=== PATIENT | male | born 1955 | race Caucasian/White ===

== ENCOUNTER 2017-12-11 19:07 | Observation (INO) ==
[2017-12-11] MEDS ORDERED: *HR* FentaNYL (PF) 100 MCG/2 ML VIAL IVP ONE ×2 (21:18→23:00)
[2017-12-11] MEDS ORDERED: Ondansetron 4 MG/2 ML VIAL IVP ONE (21:19)
--- NOTE | 2017-12-11 21:26 | Emergency Department Note ---
Disposition Clinical Impression: Cholecystitis Cholelithiasis Qualifiers: Cholelithiasis location: gallbladder Cholecystitis presence: with cholecystitis Cholecystitis acuity: acute Biliary obstruction: without biliary obstruction Qualified Code(s): K80.00 - Calculus of gallbladder with acute cholecystitis without obstruction Leukocytosis Qualifiers: Leukocytosis type: unspecified Qualified Code(s): D72.829 - Elevated white blood cell count, unspecified Disposition: Admitted As Inpatient Condition: Good Forms: ED Satisfaction Letter, Work/School Release Time of Disposition: 00:22 General Adult HPI - General Chief complaint: ED Abdominal Pain Stated complaint: ABD Pain Time Seen by Provider: 12/11/17 21:08 Source: patient Mode of arrival: ambulatory Limitations: no limitations Nursing Notes Reviewed: Yes Vital Signs Reviewed: Yes - History of Present Illness HPI Narrative: Patient is a 62-year-old male that presents emergency department with abdominal pain. Patient states that is located in the epigastric and right upper quadrant region. Patient states that he is having significant abdominal pain that has not gotten any better. Patient states that this began around 3 PM after eating a ham sandwich and a tuna salad sandwich. Patient states that the pain does radiate into his back. Patient states that he has never had anything like this before. Patient states that he tried taking Tums and antacids without any relief. Patient denies any other radiation of his pain other than into his back. Pain Scale: 9 - Related Data Allergies Allergy/AdvReac Type Severity Reaction Status Date / Time No Known Allergies Allergy Verified 12/11/17 19:30 All systems ED: reviewed and negative except as stated. Cardiovascular: Denies: chest pain Gastrointestinal: Reports: abdominal pain, nausea. Denies: vomiting, diarrhea Musculoskeletal: Reports: back pain Past Medical History - Past Medical History Medical history: Reports: hyperlipidemia, hypertension Psychiatric history: Reports: no psych history - Social History Smoking Status: Never smoker Smokeless Tobacco Status: No Alcohol use: Reports: none Drug use: Reports: none Physical Exam - General Limitations: no limitations General appearance: alert, in no apparent distress - Head Head exam: atraumatic, normocephalic - Eye Eye exam: Present: normal appearance, EOMI - Neck Neck exam: Present: normal inspection, full ROM, trachea midline - Respiratory Respiratory exam: Present: normal lung sounds bilaterally. Absent: respiratory distress, wheezes - Abdominal Exam Abdominal exam: Present: soft, tenderness, normal bowel sounds Abdominal tenderness: Present: RUQ, epigastrium, moderate - Neurological Exam Neurological exam: Present: alert, oriented X3 - Psychiatric Psychiatric exam: Present: normal affect, normal mood - Skin Skin exam: Present: warm, dry, intact Course Vital Signs Temperature 98.6 F 12/11/17 19:27 Pulse Rate 51 12/11/17 19:27 Respiratory Rate 20 12/11/17 19:27 Blood Pressure 181/90 12/11/17 19:27 O2 Sat by Pulse Oximetry 98 12/11/17 19:27 Temperature 98.6 F 12/11/17 19:27 Pulse Rate 73 12/11/17 23:55 Respiratory Rate 20 12/11/17 23:55 Blood Pressure 146/72 12/11/17 23:55 O2 Sat by Pulse Oximetry 95 12/11/17 23:55 Oxygen Delivery Oxygen Delivery Room Air Medical Decision Making - MDM Narrative Medical decision making narrative: Due the patient presented emergency Department with abdominal pain in the epigastric region and right upper quadrant there is concern for pancreatitis versus gallbladder issue. We will obtain basic laboratory testings and a CT scan of the abdomen and pelvis. Patient's CT scan was concerning for cholelithiasis so a ultrasound was obtained which showed cholelithiasis with acute cholecystitis. Patient does have a mild leukocytosis. Based on the findings of acute cholecystitis I called and spoke with the on-call surgeon Dr. cheatham. Dr. cheatham accepted the patient to his service. Patient will be admitted to the hospital for surgical management of his acute cholecystitis. Patient will also be given 1 g of Rocephin due to the patient having cholecystitis. - Lab Data Lab results reviewed: Yes I reviewed the patient's lab results. Result diagrams: 12/11/17 21:19 12/11/17 21:19 Lab Results 12/11/17 12/11/17 12/11/17 Range/Units 21:19 21:19 22:12 WBC 12.6 H (4.3-11.1) K/mcL RBC 5.02 (4.19-5.50) M/mcL Hgb 15.4 (12.9-16.9) g/dL Hct 45.8 (37.5-50.1) % MCV 91.2 (83.0-100.0) fL MCH 30.7 (28.0-33.3) pg MCHC 33.6 (31.6-35.5) g/dL RDW 12.7 (11.5-14.5) % Plt Count 295 (140-400) K/mcL MPV 9.7 (9.4-12.4) fL Immature Gran % 0.5 (0-4) % Seg Neutrophils % 80.5 % Lymphocytes % 12.9 % Monocytes % 4.5 % Eosinophils % 1.3 % Basophils % 0.3 % Neutrophils # 10.2 H (1.6-8.9) K/mcL Lymphocytes # 1.6 (0.6-4.6) K/mcL Monocytes # 0.6 (0.0-1.3) K/mcL Eosinophils # 0.2 (0.0-0.6) K/mcL Basophils # 0.0 (0.0-0.2) K/mcL Sodium 142 (136-145) mEq/L Potassium 3.8 (3.5-5.1) mEq/L Chloride 103 (98-107) mEq/L Carbon Dioxide 26 (23-29) mEq/L BUN 15 (8-23) mg/dL Creatinine 0.96 (0.70-1.30) mg/dL Est GFR ( Amer) > 60 (> 60) Est GFR (Non-Af Amer) > 60 (> 60) BUN/Creatinine Ratio 16 (6-26) Glucose 256 H (70-105) mg/dL Calculated Osmolality 304 H (280-300) Calcium 10.3 (8.6-10.3) mg/dL Total Bilirubin 0.3 (0.3-1.0) mg/dL Direct Bilirubin 0.1 (0.0-0.2) mg/dL Indirect Bilirubin 0.2 (0.0-1.2) mg/dL AST 23 (13-39) Units/L ALT 26 (7-52) Units/L Alkaline Phosphatase 88 (34-104) Units/L Serum Total Protein 8.0 (6.4-8.9) g/dL Albumin 4.7 (3.5-5.7) g/dL Globulin 3.3 (2.4-3.5) g/dL Albumin/Globulin Ratio 1.4 (1.1-2.2) Amylase 24 L (29-103) Units/L Lipase 29 (11-82) Units/L Urine Color Yellow (Yellow) Urine Clarity Cloudy A (Clear) Urine pH 6.0 (5.0-8.0) pH Units Ur Specific [place] 1.029 H (1.010-1.025) Urine Protein 100 H (Neg-Trace) mg/dL Urine Glucose (UA) 250 H (Normal) mg/dL Urine Ketones 15 H (Negative) mg/dL Urine Blood Negative (Negative) Urine Nitrite Positive A (Negative) Urine Bilirubin Negative (Negative) Urine Urobilinogen Normal (Normal) mg/dL Ur Leukocyte Esterase Trace H (Negative) Urine Microscopic RBC 0-3 (0-3) per hpf Urine Microscopic WBC 5-15 H (0-3) per hpf Ur Squamous Epith Cells Many H (None-Few) per lpf Urine Bacteria Many H (None-Few) per hpf Hyaline Casts None Seen (None-Few) per lpf Ur Culture Indicated? NO. A (NO) - Radiology Data Radiology results reviewed: Yes I reviewed the patient's radiology results. Abdomen/Pelvis CT 12/11/17 21:18 IMPRESSION: Cholelithiasis with hydropic distension of the gallbladder lumen. Recommend HIDA scan for further evaluation. Hepatic steatosis and diverticulosis coli. D/ / Brayden Martínez MD / Brayden Martínez MD Interpreting Provider: Brayden Martínez MD Gallbladder Ultrasound 12/11/17 22:55 IMPRESSION: 1. Cholelithiasis and acute cholecystitis. 2. Fatty liver versus diffuse hepatocellular disease. D/ / Patrick Robles MD / Patrick Robles MD Interpreting Provider: Patrick Robles MD
[2017-12-11 21:39] LABS: Basophils % 0.3 %; Eosinophils # 0.2 K/mcL (0.0-0.6); Eosinophils % 1.3 %; Hematocrit 45.8 % (37.5-50.1); Hemoglobin 15.4 g/dL (12.9-16.9); Immature Granulocytes % 0.5 % (0-4); Lymphocytes # 1.6 K/mcL (0.6-4.6); Lymphocytes % 12.9 %; Mean Corpuscular HGB Conc 33.6 g/dL (31.6-35.5); Mean Corpuscular Hemoglobin 30.7 pg (28.0-33.3); Mean Corpuscular Volume 91.2 fL (83.0-100.0); Mean Platelet Volume 9.7 fL (9.4-12.4); Monocytes # 0.6 K/mcL (0.0-1.3); Monocytes % 4.5 %; Neutrophils # 10.2 K/mcL (1.6-8.9); Platelet Count 295 K/mcL (140-400); Red Blood Count 5.02 M/mcL (4.19-5.50); Red Cell Distribution Width 12.7 % (11.5-14.5); Segmented Neutrophils % 80.5 %
[2017-12-11 21:55] LABS: Alanine Aminotransferase 26 Units/L (7-52); Albumin 4.7 g/dL (3.5-5.7); Albumin/Globulin Ratio 1.4 (1.1-2.2); Alkaline Phosphatase 88 Units/L (34-104); Amylase 24 Units/L (29-103); Aspartate Amino Transferase 23 Units/L (13-39); BUN/Creatinine Ratio 16 (6-26); Bilirubin,Direct 0.1 mg/dL (0.0-0.2); Bilirubin,Indirect 0.2 mg/dL (0.0-1.2); Bilirubin,Total 0.3 mg/dL (0.3-1.0); Blood Urea Nitrogen 15 mg/dL (8-23); Calcium 10.3 mg/dL (8.6-10.3); Carbon Dioxide 26 mEq/L (23-29); Chloride 103 mEq/L (98-107); Globulin 3.3 g/dL (2.4-3.5); Glucose 256 mg/dL (70-105); Lipase 29 Units/L (11-82); Osmolality,Calculated 304 (280-300); Potassium 3.8 mEq/L (3.5-5.1); Sodium 142 mEq/L (136-145); eGFR For Non-African Americans > 60 (> 60)
[2017-12-11 22:22] LABS: Bilirubin,Urine Negative (Negative); Blood,Urine Negative (Negative); Clarity,Urine Cloudy (Clear); Color,Urine Yellow (Yellow); Glucose,Urine (UA) 250 mg/dL (Normal); Ketones,Urine 15 mg/dL (Negative); Leukocyte Esterase,Urine Trace (Negative); Nitrite,Urine Positive (Negative); Protein,Urine 100 mg/dL (Neg-Trace); Specific Gravity,Urine 1.029 (1.010-1.025); Urobilinogen,Urine Normal (Normal)
[2017-12-11 22:25] LABS: Bacteria,Urine Many per hpf (None-Few); Hyaline Casts,Urine None Seen per lpf (None-Few); Squamous Epithelial Cell,Urine Many per lpf (None-Few)
[2017-12-11 22:33] LABS: RBC,Urine 0-3 per hpf (0-3)
[2017-12-11] MEDS ORDERED: Hyoscyamine SL 0.125 MG TAB.SUBL SL STA (23:27)
[2017-12-12] MEDS ORDERED: cefTRIAXone 1,000 MG in Water for inj. (sterile) 20 ML 10 ML IVP ONE (00:21)
--- NOTE | 2017-12-12 00:27 | Emergency Department Note ---
Disposition Clinical Impression: Cholecystitis Cholelithiasis Qualifiers: Cholelithiasis location: gallbladder Cholecystitis presence: with cholecystitis Cholecystitis acuity: acute Biliary obstruction: without biliary obstruction Qualified Code(s): K80.00 - Calculus of gallbladder with acute cholecystitis without obstruction Leukocytosis Qualifiers: Leukocytosis type: unspecified Qualified Code(s): D72.829 - Elevated white blood cell count, unspecified Disposition: Admitted As Inpatient Condition: Good General Adult HPI - General Chief complaint: ED Abdominal Pain Stated complaint: ABD Pain Time Seen by Provider: 12/11/17 21:08 Source: patient Mode of arrival: ambulatory Limitations: no limitations Nursing Notes Reviewed: Yes Vital Signs Reviewed: Yes - History of Present Illness Pain Scale: 9 - Related Data Allergies Allergy/AdvReac Type Severity Reaction Status Date / Time No Known Allergies Allergy Verified 12/11/17 19:30 Cardiovascular: Denies: chest pain Gastrointestinal: Reports: abdominal pain, nausea. Denies: vomiting, diarrhea Musculoskeletal: Reports: back pain Past Medical History - Past Medical History Medical history: Reports: hyperlipidemia, hypertension Psychiatric history: Reports: no psych history - Social History Smoking Status: Never smoker Smokeless Tobacco Status: No Alcohol use: Reports: none Drug use: Reports: none Physical Exam - General Limitations: no limitations General appearance: alert, in no apparent distress Course Vital Signs Temperature 98.6 F 12/11/17 19:27 Pulse Rate 51 12/11/17 19:27 Respiratory Rate 20 12/11/17 19:27 Blood Pressure 181/90 12/11/17 19:27 O2 Sat by Pulse Oximetry 98 12/11/17 19:27 Temperature 98.6 F 12/11/17 19:27 Pulse Rate 73 12/11/17 23:55 Respiratory Rate 20 12/11/17 23:55 Blood Pressure 146/72 12/11/17 23:55 O2 Sat by Pulse Oximetry 95 12/11/17 23:55 Oxygen Delivery Oxygen Delivery Room Air Medical Decision Making - Lab Data Lab results reviewed: Yes I reviewed the patient's lab results. Result diagrams: 12/11/17 21:19 12/11/17 21:19 Lab Results 12/11/17 12/11/17 12/11/17 Range/Units 21:19 21:19 22:12 WBC 12.6 H (4.3-11.1) K/mcL RBC 5.02 (4.19-5.50) M/mcL Hgb 15.4 (12.9-16.9) g/dL Hct 45.8 (37.5-50.1) % MCV 91.2 (83.0-100.0) fL MCH 30.7 (28.0-33.3) pg MCHC 33.6 (31.6-35.5) g/dL RDW 12.7 (11.5-14.5) % Plt Count 295 (140-400) K/mcL MPV 9.7 (9.4-12.4) fL Immature Gran % 0.5 (0-4) % Seg Neutrophils % 80.5 % Lymphocytes % 12.9 % Monocytes % 4.5 % Eosinophils % 1.3 % Basophils % 0.3 % Neutrophils # 10.2 H (1.6-8.9) K/mcL Lymphocytes # 1.6 (0.6-4.6) K/mcL Monocytes # 0.6 (0.0-1.3) K/mcL Eosinophils # 0.2 (0.0-0.6) K/mcL Basophils # 0.0 (0.0-0.2) K/mcL Sodium 142 (136-145) mEq/L Potassium 3.8 (3.5-5.1) mEq/L Chloride 103 (98-107) mEq/L Carbon Dioxide 26 (23-29) mEq/L BUN 15 (8-23) mg/dL Creatinine 0.96 (0.70-1.30) mg/dL Est GFR ( Amer) > 60 (> 60) Est GFR (Non-Af Amer) > 60 (> 60) BUN/Creatinine Ratio 16 (6-26) Glucose 256 H (70-105) mg/dL Calculated Osmolality 304 H (280-300) Calcium 10.3 (8.6-10.3) mg/dL Total Bilirubin 0.3 (0.3-1.0) mg/dL Direct Bilirubin 0.1 (0.0-0.2) mg/dL Indirect Bilirubin 0.2 (0.0-1.2) mg/dL AST 23 (13-39) Units/L ALT 26 (7-52) Units/L Alkaline Phosphatase 88 (34-104) Units/L Serum Total Protein 8.0 (6.4-8.9) g/dL Albumin 4.7 (3.5-5.7) g/dL Globulin 3.3 (2.4-3.5) g/dL Albumin/Globulin Ratio 1.4 (1.1-2.2) Amylase 24 L (29-103) Units/L Lipase 29 (11-82) Units/L Urine Color Yellow (Yellow) Urine Clarity Cloudy A (Clear) Urine pH 6.0 (5.0-8.0) pH Units Ur Specific [place] 1.029 H (1.010-1.025) Urine Protein 100 H (Neg-Trace) mg/dL Urine Glucose (UA) 250 H (Normal) mg/dL Urine Ketones 15 H (Negative) mg/dL Urine Blood Negative (Negative) Urine Nitrite Positive A (Negative) Urine Bilirubin Negative (Negative) Urine Urobilinogen Normal (Normal) mg/dL Ur Leukocyte Esterase Trace H (Negative) Urine Microscopic RBC 0-3 (0-3) per hpf Urine Microscopic WBC 5-15 H (0-3) per hpf Ur Squamous Epith Cells Many H (None-Few) per lpf Urine Bacteria Many H (None-Few) per hpf Hyaline Casts None Seen (None-Few) per lpf Ur Culture Indicated? NO. A (NO) - Radiology Data Radiology results reviewed: Yes I reviewed the patient's radiology results. Abdomen/Pelvis CT 12/11/17 21:18 IMPRESSION: Cholelithiasis with hydropic distension of the gallbladder lumen. Recommend HIDA scan for further evaluation. Hepatic steatosis and diverticulosis coli. D/ / Brayden Martínez MD / Brayden Martínez MD Interpreting Provider: Brayden Martínez MD Gallbladder Ultrasound 12/11/17 22:55 IMPRESSION: 1. Cholelithiasis and acute cholecystitis. 2. Fatty liver versus diffuse hepatocellular disease. D/ / Patrick Robles MD / Patrick Robles MD Interpreting Provider: Patrick Robles MD Attestation Statement - Attestation Attestation: I, Ken Milner MD, personally evaluated this patient and discussed their management with the resident physician. I reviewed the resident's note and agree with the documented findings, medical decision making, and plan of care. 62-year-old male presents to the emergency department with a complaint of epigastric and right upper quadrant abdominal pain which started shortly after eating a sandwich around 3 or 4 PM this afternoon. No prior history of similar symptoms. Patient does still have his gallbladder. He complains of nausea due to the pain but no vomiting. No fever. No melena, hematemesis, or hematochezia. No urinary symptoms. Pain seems to radiate straight through to the back. On examination patient is a well-developed obese male in no acute distress. He does appear to be in moderate discomfort. Patient is alert and oriented 3. There is no cyanosis or diaphoresis. Breath sounds are clear and equal bilaterally. Heart regular rate and rhythm. There is moderate epigastric and right upper quadrant tenderness with positive Martines sign. Labs reviewed. CT showed dilated gallbladder with stones. Right upper quadrant ultrasound shows cholelithiasis and cholecystitis. The surgeon streetcar conductor, Dr. Louie, was consulted and accepted admission of the patient to his service.
[2017-12-12] MEDS ORDERED: *HR* OxyCODONE Immed Rel 5 MG TABLET PO PRN ×3 (01:36→11:25)
[2017-12-12] MEDS ORDERED: Piperacillin/Tazobactam 3.375 GM in 0.9 % Sodium Chloride Mini Bag 100 ML IVPB SCH (01:37)
[2017-12-12] MEDS ORDERED: Ringers Solution, Lactated 1,000 ML IVC SCH (01:45)
[2017-12-12] MEDS ORDERED: Ondansetron 4 MG/2 ML VIAL IVP PRN ×2 (01:49→11:25)
[2017-12-12] MEDS ORDERED: Ondansetron 4 MG/2 ML VIAL IVP SCH (04:00)
[2017-12-12] MEDS ORDERED: *HR* Metoprolol 5 MG/5 ML VIAL IVP SCH (06:00)
[2017-12-12] MEDS ORDERED: Bupivacaine/EPI 1:200k 0.25%PF 30 ML VIAL ONE (07:22)
--- NOTE | 2017-12-12 07:30 | General Surg History&Physical ---
Date of Encounter: 12/12/17 Time of Encounter: 07:00 History of Present Illness Chief complaint: Right upper quadrant abdominal pain HPI: Mr. Lugo is a 62 year old, resident of [place], [place], referred for further surgical evaluation and possible treatment after presenting to the [facility] emergency room department with abrupt onset right upper quadrant and epigastric abdominal pain. The pain radiates through to the back. There is been no fevers , chills, nausea, or vomiting. CT abdomen and pelvis demonstrated mild fatty infiltration of the liver; a small cyst within the right hepatic lobe; gallstones with dilated gallbladder. A 2.1 cm duodenal diverticulum was also noted. A subsequent ultrasound demonstrated diffusely echogenic liver consistent with hepatic steatosis with tiny gallstones seen within the gallbladder without gallbladder wall thickening or pericholecystic fluid. White count was mildly elevated at 12.6. The patient's symptoms were controlled briefly with medications in the emergency department with the patient opted to stay in this community for further evaluation and treatment rather than risk traveling home to [place]. Patient was referred to surgical services for cholelithiasis with concerns for acute cholecystitis. Past medical history: Obstructive sleep apnea, obesity, hypertension, hyperlipidemia Surgical history: Cervical fusion; ORIF left tibia with intramedullary brian which was subsequently removed; right great toe surgery (cartilage replacement); Tonsillectomy in the remote past; excision cystic lesion right wrist Allergies: No known drug allergies Medications: The patient is unable to recall his medications (his mother has a list but she has not yet been available to provide that information) Social history: Patient is a resident of [facility]; he is disabled and not working; he admits to tobacco use of approximately 1 pack per day for 20 years, but quit smoking in 2006. He admits to an occasional alcoholic beverage; he has used marijuana and cocaine in the remote past Family history: Not obtained Physical examination: Obese, age-appropriate male resting comfortably in his hospital bed. He still describes the presence of right upper quadrant tenderness There is a low-grade fever of 100.3; pulse currently 100 (range 89-100) respiratory rate 1519 and unlabored; blood pressure 169/80. SPO2 on room air 91%; while using CPAP it was 85% Skin: Warm, no obvious jaundice Lungs: Clear; no obvious wheezes or rales. Minimal right upper quadrant pain on deep inspiration Cardiac: Regular rate, soft, 2/6, systolic murmur Abdomen: Obese with minimal tenderness in the right upper quadrant. No obvious intra-abdominal masses, peritoneal signs or rebound. Bowel sounds hypoactive Extremities: no obvious clubbing, cyanosis, or edema. Impression: 62-year-old male with abrupt onset of right upper quadrant and epigastric abdominal pain radiating through to the back. Radiologic findings of gallstones as well as hepatic steatosis. Low-grade fever and leukocytosis suggestive of acute cholecystitis though the clinical findings are minimal. The patient remains symptomatic this morning. Cholecystectomy has been recommended. The patient is a reasonable candidate for laparoscopic cholecystectomy but understands an open cholecystectomy may become necessary. Risks of surgery include hemorrhage, infection, intra- abdominal abscess, injury to adjacent ducts, vessels, organs, and or bowel. Postcholecystectomy diarrhea may also develop. This has been discussed in detail with the patient, he is willing to proceed. Surgical consent has been obtained. Additional risks include pneumonia, respiratory failure requiring prolonged mechanical ventilation. Past Med Surg Social Fam HX - Past Medical History Medical history: hyperlipidemia, hypertension Additional medical history: stomach ulcers Psychiatric history: no psych history - Past Surgical History Additional surgical history: neck. wrist. leg - Social History Smoking Status: Never smoker Smokeless Tobacco Status: No Alcohol use: none Drug use: none Medications and Allergies 3 Allergy/AdvReac Type Severity Reaction Status Date / Time No Known Allergies Allergy Verified 12/11/17 19:30 Review of Systems All systems PM: The remainder of the systems were reviewed and are negative General Surgery Exam Initial Vital Signs Temp Pulse Resp BP Pulse Ox 98.6 F 51 20 181/90 98 12/11/17 19:27 12/11/17 19:27 12/11/17 19:27 12/11/17 19:27 12/11/17 19:27 Results - Labs 12/11/17 21:19 12/11/17 21:19 Abnormal lab results WBC 12.6 K/mcL (4.3-11.1) H 12/11/17 21:19 Neutrophils # 10.2 K/mcL (1.6-8.9) H 12/11/17 21:19 Glucose 256 mg/dL (70-105) H 12/11/17 21:19 POC Glucose 177 mg/dL (70-99) H 12/12/17 05:46 Calculated Osmolality 304 (280-300) H 12/11/17 21:19 Amylase 24 Units/L (29-103) L 12/11/17 21:19 Urine Clarity Cloudy (Clear) A 12/11/17 22:12 Ur Specific [place] 1.029 (1.010-1.025) H 12/11/17 22:12 Urine Protein 100 mg/dL (Neg-Trace) H 12/11/17 22:12 Urine Glucose (UA) 250 mg/dL (Normal) H 12/11/17 22:12 Urine Ketones 15 mg/dL (Negative) H 12/11/17 22:12 Urine Nitrite Positive (Negative) A 12/11/17 22:12 Ur Leukocyte Esterase Trace (Negative) H 12/11/17 22:12 Urine Microscopic WBC 5-15 per hpf (0-3) H 12/11/17 22:12 Ur Squamous Epith Cells Many per lpf (None-Few) H 12/11/17 22:12 Urine Bacteria Many per hpf (None-Few) H 12/11/17 22:12 Ur Culture Indicated? NO. (NO) A 12/11/17 22:12 All other labs normal.
--- NOTE | 2017-12-12 07:38 | Anesthesia Evaluation PreOp ---
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 Diabetic Neuropathy) Other Medical History: Diabetes Type II, Other (MO/BMI = 46) Anesthesia History: No Prior Anesthetic Complications, Past Anesthesia (ORIF L- Tibia, L-Tibia hardware removal, R-great toe cartilage replacement, T*A, R- wrist ganglion wrist,C-spine fusion) Alcohol Use: none Drug use: none Medications and Allergies 3 Allergy/AdvReac Type Severity Reaction Status Date / Time No Known Allergies Allergy Verified 12/11/17 19:30 - Meds/Allergy Pre-op Review Medications Reviewed: Yes Allergies Reviewed: Yes Beta Blockers on Current Med List: No Anesthesia Results - Labs 12/11/17 21:19 12/11/17 21:19 Laboratory Results Impressions Abdomen/Pelvis CT 12/11/17 21:18 IMPRESSION: Cholelithiasis with hydropic distension of the gallbladder lumen. Recommend HIDA scan for further evaluation. Hepatic steatosis and diverticulosis coli. D/ / Brayden Martínez MD / Brayden Martínez MD Interpreting Provider: Brayden Martínez MD Gallbladder Ultrasound 12/11/17 22:55 IMPRESSION: 1. Cholelithiasis and acute cholecystitis. 2. Fatty liver versus diffuse hepatocellular disease. D/ / Patrick Robles MD / Patrick Robles MD Interpreting Provider: Patrick Robles MD Anesthesia Exam Vital Signs Temp Pulse Resp BP Pulse Ox 12/12/17 06:16 100.3 F H 100 15 169/80 91 12/12/17 02:15 19 95 12/12/17 01:53 98.6 F 89 18 129/82 95 12/12/17 00:30 20 112/94 12/12/17 00:00 153/63 12/11/17 23:55 73 20 146/72 95 12/11/17 22:30 135/90 12/11/17 21:30 160/81 12/11/17 19:27 98.6 F 51 20 181/90 98 Intake and Output Patient Weight 12/12/17 23:59 Weight 136 kg Height: 5'8" Weight: 299# BMI = 46 NPO (# of Hours): MNOc - HEENT Pupil (Motor): Pupils equal Mallampati: III (some soft palate visible. Uvula not visible. GOOD ROM forward/ back & side-side) Teeth: Normal (loosened L-lower loosened pre-Molar) Oral Opening: Greater than 3 - CHILD CARE TEACHER LOC: Oriented CHILD CARE TEACHER Motor: Normal RUE, Normal LUE, Normal RLE, Normal LLE, Normal Face CHILD CARE TEACHER Sensory: Normal: RUE, LUE (occasional "zing" with cervical motion), RLE, LLE , Face - Cardiac Rhythm: Regular Murmur: None - Pulmonary Breath Sounds: bilateral Clear Respiratory Effort: Symmetrical Anesthesia Assess/Plan ASA Score: 3 (MO/BMI = 46, COPD, BACILIO/CPAP, DM, PUD, HTN, Chol) Anesthetic Plan: General Monitoring Plan: Standard Monitors Recovery Plan: PACU Anes Supervising Prov Stmt: Pt seen/evaluated, R&B Discussed, questions answered and consent obtained. Arnol Martin MD
[2017-12-12] MEDS ORDERED: Isovue-300 50 ML VIAL IVP ONE (07:52)
[2017-12-12] MEDS ORDERED: Acetaminophen IV 1,000 MG/100 ML INFUS..BTL ONE (08:01)
[2017-12-12] MEDS ORDERED: Famotidine 20 MG/2 ML VIAL ONE (08:02)
[2017-12-12] MEDS ORDERED: Ondansetron 4 MG/2 ML VIAL IVP ONE (08:28)
[2017-12-12] MEDS ORDERED: Albuterol 2.5 MG/3 ML NEBULIZER IH ONE (08:28)
[2017-12-12] MEDS ORDERED: *HR* FentaNYL (PF) 100 MCG/2 ML VIAL IVP PRN (08:28)
[2017-12-12] MEDS ORDERED: ceFAZolin 1,000 MG in Water for inj. (sterile) 20 ML 10 ML IVP ONE (08:48)
[2017-12-12] MEDS ORDERED: Lidocaine -MPF 2% 2 ML VIAL ONE (08:50)
[2017-12-12] MEDS ORDERED: Lidocaine -MPF 4% 5 ML AMPUL ONE (08:50)
[2017-12-12] MEDS ORDERED: Ketorolac 30 MG/ML VIAL ONE (08:50)
[2017-12-12] MEDS ORDERED: *HR* FentaNYL (PF) 100 MCG/2 ML VIAL ONE ×3 (08:50→10:16)
[2017-12-12] MEDS ORDERED: *HR* Propofol 200 MG/20 ML VIAL IVP ONE (08:50)
[2017-12-12] MEDS ORDERED: *HR* Succinylcholine 200 MG/10 ML VIAL IVP ONE (08:50)
[2017-12-12] MEDS ORDERED: Neostigmine Methylsulfate 3 MG/3 ML SYRINGE ONE (08:50)
[2017-12-12] MEDS ORDERED: *HR* Rocuronium Bromide 50 MG/5 ML VIAL ONE (08:50)
[2017-12-12] MEDS ORDERED: Dexamethasone 4 MG/ML VIAL ONE (08:50)
[2017-12-12] MEDS ORDERED: Ondansetron 4 MG/2 ML VIAL ONE (08:50)
[2017-12-12] MEDS ORDERED: *HR* HYDROmorphone (PF) 1 MG/ML SYRINGE ONE (10:20)
[2017-12-12] MEDS ORDERED: Ringers Solution, Lactated 500 ML IVC ONE (10:39)
--- NOTE | 2017-12-12 10:54 | Operative Note ---
Date of procedure: 12/12/17 Pre-op diagnosis: Right upper quadrant abdominal pain, cholecystitis cholelithiasis Post-op diagnosis: same (Acute cholecystitis, cholelithiasis) Procedure: Laparoscopic cholecystectomy Implants: None Anesthesia: GETA Local Anesthetics: 0.25% Sensorcaine HCL with Epinephrine 1:200,000 SubQ (cc) ( 30 mL) Surgeon: Alex Louie Was there an underwriting assistant present: No Estimated blood loss (cc): 50 IV fluids (cc): 1,000 Specimen: gallbladder Condition: stable Disposition: PACU Procedure in Detail: Brief history: 62-year-old male admitted for further surgical evaluation and treatment after presenting to [facility] ED the evening of 12/11/17 with abrupt onset right upper quadrant and epigastric abdominal pain radiating through to the back pain. Imaging was consistent with cholelithiasis. CT suggested the presence of pericholecystic fluid but this was not confirmed on ultrasound of the gallbladder. Stones were evident. Leukocytosis at the time of presentation raised the concern for acute cholecystitis. The patient was still symptomatic this morning. Surgery was recommended. Technique: The patient was brought to the operating room where he was placed supine on the procedure table. The patient was appropriately identified as to person and procedure. The accuracy of this information was confirmed by the patient and procedure team. The patient was intubated and anesthetized under the supervision of Dr. Hollie Magallanes. The abdomen was examined under anesthesia. The gallbladder was palpable. The abdomen was then prepped and draped in usual sterile fashion. Several milliliters of 0.25% bupivacaine with 1-200,000 units epinephrine was infiltrated into the supraumbilical skin. A small transverse incision was made and extended to the fascia. Additional bupivacaine with epinephrine was infiltrated. The fascia was grasped, elevated and incised. An 11 mm Xcel port was established. The rigid laparoscope was placed within the obturator to visualize passage through the layers of the anterior abdominal wall. When the abdominal cavity was accessed, the obturator was replaced by the rigid laparoscope, the abdomen was insufflated with gaseous carbon dioxide. There was no obvious visible injury from establishing the port. Under direct visualization, 3 additional ports were placed along the right costal margin in the subxiphoid, midclavicular, and anterior axillary line. Each port site was infiltrated with the bupivacaine with epinephrine solution. The omentum was densely adherent to the gallbladder. This required dissection assisted by the Ethicon harmonic marcy. A tensely distended acutely inflamed gallbladder was exposed. The gallbladder was decompressed by aspirating approximately 60 mL of a dark green bile. This facilitated retraction of the gallbladder. Multiple adhesions were encountered the length of the gallbladder to the infundibulum requiring dissection. The dissection proceeded slowly. It was necessary to use an endoscopic Paddle retractor to facilitate exposure as well as a 30 degree laparoscope. The cystic duct was eventually identified skeletonized and clipped. The cystic duct was then divided. The cystic artery was identified clipped and divided. The gallbladder was dissected from the liver bed using Ethicon harmonic marcy. When the gallbladder was from the liver bed , it was placed in an endoscopic pouch and extracted through the infraumbilical opening. The gallbladder was retrieved and sent to pathology for analysis. Early gangrenous changes were present. Several small stones were evident within the fundus. The liver bed was inspected for hemostasis. Hemostasis was assisted by applying Arsenio to the liver bed. When hemostasis was deemed adequate, the pneumoperitoneum was evacuated, the instrumentation removed. The fascia of the infraumbilical opening was closed with interrupted figure 8-0 Vicryl using S retractors. The skin edges of the port sites were approximated with subcuticular 4-0 Vicryl. The incisions were sealed with Dermabond dermal adhesive. The patient was taken the recovery in stable condition. Needle, sponge, and instrument counts were correct at the close of the case. 30 mL of 0.25% bupivacaine with 1-200,000 units epinephrine was administered to the port sites during this procedure.
[2017-12-12] MEDS ORDERED: Acetaminophen 325 MG TABLET PO PRN (11:25)
[2017-12-12] MEDS ORDERED: *HR* OxyCODONE/APAP 5/325 TABLET PO PRN (11:25)
--- NOTE | 2017-12-12 11:41 | Anesthesia Evaluation Post Op ---
Date of Encounter: 12/12/17 Time of Encounter: 11:20 - Vital Signs Vital Signs: Vital Signs/O2 Sat/Glucose, Most Current Temp Pulse Resp BP Pulse Ox 12/12/17 11:16 98.7 F 85 14 104/55 96 12/12/17 11:06 99.1 F 78 12 107/59 95 12/12/17 10:56 86 12 118/59 94 12/12/17 10:48 12 94 12/12/17 10:46 88 12 111/66 94 12/12/17 10:41 97 14 116/60 94 12/12/17 10:36 99.3 F 99 14 115/59 95 - Lungs Lungs: Clear Ascult./Percussion - Airway Airway: Non-obstructed (CPAP applied) - Mental Status Mental Status: Alert & Oriented, Answers Appropriately - Pain Pain Scale: 0 Pain Scale used: Numeric (1 - 10) - Nausea Vomiting Nausea Vomiting: Not Present - Hydration Hydration: Ice chips - Discharge PostOp Status: Transfer Patient to floor Anes Supervising Prov Stmt: Pt seen/evaluated, VSS and pt has met criteria for discharge to home. - MD Veronica
[2017-12-12] MEDS: *HR* Metoprolol 5 MG/5 ML VIAL IVP SCH ×2 (12:05→18:36)
[2017-12-12] MEDS: Ringers Solution, Lactated 1,000 ML IVC SCH (19:46)
[2017-12-12] MEDS: Tiotropium 18 MCG inhalation IH SCH (21:06)
[2017-12-12] MEDS: Gabapentin 300 MG CAPSULE PO SCH (21:07)
[2017-12-12] MEDS: *HR* Metformin 500 MG TABLET PO SCH (21:10)
[2017-12-13] MEDS: Ringers Solution, Lactated 1,000 ML IVC SCH (04:15)
[2017-12-13 05:04] LABS: Basophils % 0.2 %; Eosinophils # 0.1 K/mcL (0.0-0.6); Eosinophils % 0.4 %; Hematocrit 36.6 % (37.5-50.1); Immature Granulocytes % 0.4 % (0-4); Lymphocytes # 1.8 K/mcL (0.6-4.6); Lymphocytes % 14.5 %; Mean Corpuscular HGB Conc 33.1 g/dL (31.6-35.5); Mean Corpuscular Hemoglobin 30.3 pg (28.0-33.3); Mean Corpuscular Volume 91.5 fL (83.0-100.0); Monocytes # 0.7 K/mcL (0.0-1.3); Monocytes % 5.4 %; Neutrophils # 9.8 K/mcL (1.6-8.9); Platelet Count 191 K/mcL (140-400); Red Cell Distribution Width 13.2 % (11.5-14.5); Segmented Neutrophils % 79.1 %
[2017-12-13 05:07] LABS: Hemoglobin 12.1 g/dL (12.9-16.9)
[2017-12-13 05:25] LABS: Alanine Aminotransferase 38 Units/L (7-52); Albumin 3.5 g/dL (3.5-5.7); Albumin/Globulin Ratio 1.2 (1.1-2.2); Alkaline Phosphatase 64 Units/L (34-104); Aspartate Amino Transferase 33 Units/L (13-39); BUN/Creatinine Ratio 16 (6-26); Bilirubin,Total 0.5 mg/dL (0.3-1.0); Blood Urea Nitrogen 15 mg/dL (8-23); Calcium 8.6 mg/dL (8.6-10.3); Carbon Dioxide 26 mEq/L (23-29); Chloride 103 mEq/L (98-107); Globulin 2.9 g/dL (2.4-3.5); Glucose 149 mg/dL (70-105); Osmolality,Calculated 290 (280-300); Potassium 3.5 mEq/L (3.5-5.1); Sodium 138 mEq/L (136-145); Total Protein 6.4 g/dL (6.4-8.9); eGFR For Non-African Americans > 60 (> 60)
[2017-12-13] MEDS: *HR* Metformin 500 MG TABLET PO SCH (07:32)
[2017-12-13] MEDS: Gabapentin 300 MG CAPSULE PO SCH (07:32)
[2017-12-13] MEDS ORDERED: amLODIPine 5 MG TABLET PO SCH (09:00)
[2017-12-13] MEDS ORDERED: Aspirin Enteric Coated 81 MG Tablet PO SCH (09:00)
[2017-12-13 10:21] VITALS: BP 114/70
[2017-12-13] MEDS: Tiotropium 18 MCG inhalation IH SCH (10:53)
--- NOTE | 2017-12-13 14:44 | General Surgery Progress Note ---
Date of Encounter: 12/13/17 Time of Encounter: 14:20 Subjective Patient reports: feels better Narrative: General Surgery - POD #1 Patient feeling much improved. Preoperative pain resolved. Minimal port site tenderness. Maximum temperature 99.9, pulse 83, respirations 14, blood pressure 114/70. SPO2 on room air 93%. Lungs: Clear bilaterally with no obvious pain on deep inspiration Abdomen: Obese, soft with minimal right upper quadrant tenderness. Port sites intact and healing well Active bowel sounds. Patient tolerating diet. He denies any diarrhea Urine output: Proximally 750 mL so far today Laboratories: White count 12.3; hemoglobin 12.1, hematocrit 36.6. Neutrophils 9.8 (previously 10.2) Electrolytes, BUN, creatinine within normal limits LFTs have remained within the normal range. Impression/Plan: Postoperative day #1 - status post laparoscopic cholecystectomy for acute cholecystitis cholelithiasis. Acceptable postoperative status. Obstructive sleep apnea Obesity Hypertension and hyperlipidemia. Plan: Discharge home Outpatient follow-up in my office, 12/21/17. Patient to call office in a.m. to make this appointment Instructions: Regular diet Activity as tolerated. No lifting more than 20 pounds Patient may shower, wash incision with soap and water Tylenol, Motrin, Advil, Aleve, as needed for pain Prescription for Percocet 5/325, #12, one every 6 hours as needed for pain not relieved by [id number] medications Cristyhen to resume home meds and therapy Objective Vital Signs - Last 8 Hours Temp Pulse Resp BP Pulse Ox 12/13/17 10:56 14 93 12/13/17 10:20 99.9 F H 83 14 114/70 93 Intake and Output 12/12/17 12/13/17 12/13/17 23:59 07:59 15:59 Intake Total 630 / 630 1480 / 1480 1420 / 1420 Output Total 100 / 100 500 / 500 250 / 250 Balance 530 / 530 980 / 980 1170 / 1170 Intake: IV Fluids 1000 / 1000 1000 / 1000 Lactated Ringers 1,000 ML @ 100 1000 / 1000 1000 / 1000 mls/hr IVC .Q10H PAGE Rx#: [id number] Oral 630 / 630 480 / 480 420 / 420 Output: Urine 100 / 100 500 / 500 250 / 250 Other: Meal Dinner Lunch Percent of Meal Consumed 100% 100% Weight 136.4 kg Blood Glucose* 168 Patient Weight 12/13/17 23:59 Weight 136.4 kg - Labs 12/13/17 04:53 12/13/17 04:53 Diabetes panel 12/13/17 Range/Units 04:53 Sodium 138 (136-145) mEq/L Potassium 3.5 (3.5-5.1) mEq/L Chloride 103 (98-107) mEq/L Carbon Dioxide 26 (23-29) mEq/L BUN 15 (8-23) mg/dL Creatinine 0.95 (0.70-1.30) mg/dL Glucose 149 H (70-105) mg/dL Calcium 8.6 (8.6-10.3) mg/dL AST 33 (13-39) Units/L ALT 38 (7-52) Units/L Alkaline Phosphatase 64 (34-104) Units/L Albumin 3.5 (3.5-5.7) g/dL Calcium panel 12/13/17 Range/Units 04:53 Calcium 8.6 (8.6-10.3) mg/dL Albumin 3.5 (3.5-5.7) g/dL Pituitary panel 12/13/17 Range/Units 04:53 Sodium 138 (136-145) mEq/L Potassium 3.5 (3.5-5.1) mEq/L Chloride 103 (98-107) mEq/L Carbon Dioxide 26 (23-29) mEq/L BUN 15 (8-23) mg/dL Creatinine 0.95 (0.70-1.30) mg/dL Glucose 149 H (70-105) mg/dL Calcium 8.6 (8.6-10.3) mg/dL Adrenal panel 12/13/17 Range/Units 04:53 Sodium 138 (136-145) mEq/L Potassium 3.5 (3.5-5.1) mEq/L Chloride 103 (98-107) mEq/L Carbon Dioxide 26 (23-29) mEq/L BUN 15 (8-23) mg/dL Creatinine 0.95 (0.70-1.30) mg/dL Glucose 149 H (70-105) mg/dL Calcium 8.6 (8.6-10.3) mg/dL Total Bilirubin 0.5 (0.3-1.0) mg/dL AST 33 (13-39) Units/L ALT 38 (7-52) Units/L Alkaline Phosphatase 64 (34-104) Units/L Albumin 3.5 (3.5-5.7) g/dL Consult Discharge Plan - Plan Referrals: NONE,PCP [Primary Care Provider] -
--- NOTE | 2017-12-13 15:18 | Discharge Summary ---
Outpatient Proc Discharge Plan - Plan Instructions: Cholecystitis (DC), Laparoscopic Cholecystectomy (DC) Additional Instructions: Regular diet Activity as tolerated NO LIFTING MORE THAN 20# Patient may shower, wash incisions with soap and water Tylenol, ibuprofen, Motrin, Advil, Aleve, etc. as needed for pain Prescription for Percocet 5/325, #12, one every 6 hours as needed for pain not relieved by [id number] medications Outpatient follow-up in my office, 12/21/17. Patient to call office in a.m. to make this appointment. Patient to resume his home meds and therapies such as CPAP. Prescriptions: OxyCODONE/APAP 5/325 [Percocet 5/325 MG] 1 each PO Q6H PRN 2 Days #12 tablet PRN Reason: Pain Home Medications: Ascorbic Acid [Vitamin C] 1,000 mg PO DAILY 12/12/17 [History] Aspirin [Lo-Dose Aspirin EC] 81 mg PO DAILY 12/12/17 [History] Betamethasone Dipropionate 15 gm TP DAILY 12/12/17 [History] Betamethasone Dipropionate 15 gm TP DAILY 12/12/17 [History] Cpap 1 each IH AD 12/12/17 [History] Gabapentin [Neurontin] 300 mg PO BID 12/12/17 [History] Metformin HCl 1,000 mg PO BID 12/12/17 [History] Metoprolol Tartrate 25 mg PO BID 12/12/17 [History] Multivit-Min/Iron Fum/Folic AC [Tfelg-Bhgttps-Wuafaeuk Tablet] 1 tab PO DAILY [History] [place]-3/Dha/Epa/Fish Oil [Fish Oil 1,000 mg Softgel] 1 each PO QPM 12/12/17 [ History] [place]-3/Dha/Epa/Fish Oil [Fish Oil 1,000 mg Softgel] 2 each PO QPM 12/12/17 [ History] Ranitidine HCl [Acid Dinkey Operator Slag] 75 mg PO BID 12/12/17 [History] Simvastatin [Zocor] 20 mg PO HS 12/12/17 [History] Tiotropium Graham [Spiriva Respimat] 1 puff IH DAILY 12/12/17 [History] amLODIPine [Norvasc] 5 mg PO DAILY 12/12/17 [History] hydroCHLOROthiazide [Hydrochlorothiazide] 25 mg PO DAILY 12/12/17 [History] Acetaminophen [Tylenol] 650 mg PO Q6HR PRN tablet 12/13/17 [Rx] OxyCODONE/APAP 5/325 [Percocet 5/325 MG] 1 each PO Q6H PRN 2 Days #12 tablet [Rx]
== END 2017-12-13 15:55 | disposition home or self-care (01) ==
LOC: EMEROOARM 19:07 → 3ANU 19:07
PROVIDERS: ADMIT Surgery; ATTEND Surgery